=== PATIENT | male | born 1990 | race Caucasian/White ===

== ENCOUNTER 2017-10-30 10:23 | Emergency (ER) | payer BC, SELFPAY ==
--- NOTE | 2017-10-30 12:02 | RAD ---
THREE VIEWS RIGHT WRIST: Indication: Right hand injury. FINDINGS: There is healed instrumented distal radius fracture. Instrumentation appears intact. The distal radiu s fracture is well healed. There is a remote ulnar styloid process fracture. No acute fracture or sub luxation is evident. There is suggested healed deformity involving a small finger metacarpal neck. IMPRESSION: No acute osseous abnormality. Post-operative and post-traumatic changes of the right hand and wrist. POS: [facility]
[2017-10-30] MEDS ORDERED: Ketorolac Tromethamine 60 MG/2 ML VIAL ONE (12:09)
--- NOTE | 2017-10-30 14:49 | ULT ---
ULTRASOUND SOFT TISSUE: History Injury of the wrist. [place] a pop. COMPARISON: None. FINDINGS: In the soft tissues of the wrist is a fluid collection adjacent to the radial artery. There is no fl ow within this collection. This is likely an empty tendon sheath versus ganglion pseudocyst. IMPRESSION: Empty tendon sheath from rupture versus a ganglion pseudocyst at the palpable abnormality measuring 1 x 0.6 x 2 cm. MRI imaging may be more beneficial if clinically warranted. POS: [facility]
== END 2017-10-30 14:23 | disposition home or self-care (01) ==
LOC: ERS 10:23
DX: L72.9 Follicular cyst of the skin and subcutaneous tissue, unspecified (principal)
CPT/HCPCS: 76882; 96372; J1885